=== PATIENT | female | born 1945 ===

== ENCOUNTER 2023-12-13 09:57 | Outpatient (CLI) | payer OTHER, SELFPAY ==
--- NOTE | ~2023-12-13 | MR_ITS ---
EXAMINATION: MR knee LT wo con DATE: 12/13/2023 11:05 INDICATION: Left knee pain TECHNIQUE: Magnetic resonance imaging (MRI) of the left knee was performed without intravenous contra st. Sequences included coronal PD-weighted FSE, coronal PD-weighted FS FSE, sagittal T2-weighted FSE , sagittal PD-weighted FS FSE and axial PD weighted fat saturated FSE. COMPARISON: None. FINDINGS: Medial compartment: Complex medial meniscal tear with longitudinal horizontal tear plane from the posterior body into the posterior horn with additional vertically oriented tear plane extending obliquely along the superior articular surface of the posterior horn. Partial-thickness chondral ulceration with chondral surface irregularity which appears to involve greater than 50% the cartilage thickness along the anterior to central weightbearing medial femoral condyle. Additional partial thickness chondral fissuring along the lateral aspect of the medial tibial plateau along the shoulder the intercondylar eminence. Lateral compartment: Lateral meniscus is normal. Small region of partial-thickness chondral fissuring at the medial aspect of the lateral tibial plateau. 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 There are few small foci of secondary some reticular e sharri-like signal change along the lateral patellar facet. Additional deep chondral ulceration along t he juxtaposed cephalad aspect of the lateral trochlea with air appears be some early remodeling of th e articular cortex and minimal underlying subarticular edema-like signal change. Additional less michel re partial thickness chondral ulceration at the cephalad aspect of the medial trochlea and trochlear groove. Ligaments and tendons: Anterior and posterior cruciate ligaments are normal. There is increased fluid signal along the deep and superficial margins of the otherwise normal-appearing medial collateral ligament complex which co uld be reactive related to the meniscal tear and chondromalacia in the medial compartment but also be seen with acute low-grade sprain of the medial collateral ligament complex in the appropriate clinic al setting. The fibular collateral ligament complex is normal. The extensor mechanism is normal. The visualized medial and lateral hamstring tendons as well as the iliotibial band are normal. Fluid: Small knee joint effusion at the suprapatellar pouch. There is also a small Coughlin's cyst. No loose os teochondral bodies identified. Osseous/other: Bone alignment is normal. No fracture or pathologic marrow replacing process. IMPRESSION: 1. Complex tear of the posterior body and posterior horn of the medial meniscus. 2. Tricompartmental osteoarthritis, severe with extensive high-grade chondromalacia in the patellofem oral compartment and mild with extensive moderate grade chondromalacia in the medial compartment and minimal with small region of moderate grade chondral malacia the lateral compartment. 3. Increased fluid signal extending along the deep and superficial margins of the otherwise normal ap pearing medial collateral ligament complex most likely reactive related to the meniscal tear and conf irmation the medial compartment although differential would include acute low-grade sprain. 4. Likely reactive small knee joint effusion and small Coughlin's cyst. Reviewed, dictated and finalized at location B. IMPRESSION: 1. Complex tear of the posterior body and posterior horn of the medial meniscus . 2. Tricompartmental osteoarthritis, severe with extensive high-grade chondromal acia in the patellofemoral compartment and mild with extensive moderate grade c hondromalacia in the medial compartmen
== END 2023-12-13 09:58 ==
LOC: GOSHIMG 10:00
PROVIDERS: PCP Nurse Practitioner; Visit Provider Orthopaedic Surgery
DX: S83.232A Complex tear of medial meniscus, current injury, left knee, initial encounter (principal); X58.XXXA Exposure to other specified factors, initial encounter; M17.12 Unilateral primary osteoarthritis, left knee
CPT/HCPCS: 73721